=== PATIENT | male | born 1995 | race Two or more races ===

== ENCOUNTER 2025-05-09 23:54 | Emergency (ER) | payer MEDICAID, OTHER ==
[~2025-05-09] VITALS: Ht 180.3 cm; Wt 60.0 kg
[2025-05-10 00:01] VITALS: BP 96/66; PULSE 111; RESP 18; TEMP 98.1; O2SAT 97
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
[2025-05-10 00:43] LABS: Hematocrit 44.9 % (41.0-53.0); Hemoglobin 15.1 g/dL (13.5-17.5); Mean Corpuscular Hemoglobin 31.6 pg (28.0-32.0); Mean Corpuscular Volume 94.0 fL (80.0-100.0); Nucleated Red Blood Cells % 0.1 %
[2025-05-10] MEDS: LIDOCAINE 1% HCL (LOCAL ANESTH.) INJ 20ML MDV ID ONE (00:50)
[2025-05-10 01:19] LABS: Alanine Aminotransferase 19 U/L (7-40); Alkaline Phosphatase 82 U/L (46-116); BUN/Creatinine Ratio 6.5 (10.0-20.0); Calcium 9.2 mg/dL (8.7-10.4); Chloride 107 mmol/L (98-107); Sodium 144 mmol/L (136-145); Total Protein 7.6 g/dL (5.7-8.2)
[2025-05-10 01:29] LABS: Albumin 5.2 g/dL (3.2-4.8); Bilirubin, Total 2.5 mg/dL (0.2-1.0); Blood Urea Nitrogen 8 mg/dL (9-23); Glucose 109 mg/dL (74-106); Potassium 3.3 mmol/L (3.5-5.1)
[2025-05-10 01:52] LABS: Anion Gap 18 (5-15)
[2025-05-10 01:55] LABS: Carbon Dioxide 19 mmol/L (20-31)
[2025-05-10 02:15] LABS: Salicylate < 3.0 mg/dL (-30)
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
[2025-05-10 04:21] LABS: Acetaminophen < 2.0 UG/ML (10.0-20.0)
== END 2025-05-10 02:30 | disposition left against medical advice (07) ==
LOC: ER 23:54
DX: S61.411A Laceration without foreign body of right hand, initial encounter (principal); S51.812A Laceration without foreign body of left forearm, initial encounter; F10.929 Alcohol use, unspecified with intoxication, unspecified; Y90.5 Blood alcohol level of 100-119 mg/100 ml; X99.1XXA Assault by knife, initial encounter; Y93.89 Activity, other specified; Y92.89 Other specified places as the place of occurrence of the external cause; Y99.8 Other external cause status
CPT/HCPCS: 12002; 36415; 73090; 73120; 80053; 80320; 80329; 85025; 86850; 86900; 86901